=== PATIENT | female | born 1955 | race Hispanic/Latino ===

== ENCOUNTER 2021-05-28 14:46 | Emergency (ER) | payer OTHER ==
[~2021-05-28] VITALS: Ht 157.5 cm; Wt 108.9 kg
[2021-05-28] MEDS ORDERED: KETOROLAC 30MG VIAL (30MG/ML) IM ONE (16:30)
[2021-05-28] MEDS ORDERED: HYDROCODONE/ACETAMINOPHEN 5/325 MG TAB PO ONE (16:30)
[2021-05-28] MEDS ORDERED: IBUP-2070 PO (17:32)
[2021-05-28] MEDS ORDERED: CYCL5TAB PO (17:32)
[2021-05-28] MEDS ORDERED: ACET1TAB25 PO (17:32)
[2021-05-28 18:06] VITALS: BP 120/73
== END 2021-05-28 18:41 | disposition home or self-care (01) ==
LOC: EDH 14:46
DX: S82.832A Other fracture of upper and lower end of left fibula, initial encounter for closed fracture (principal); M25.562 Pain in left knee; I10 Essential (primary) hypertension; E11.9 Type 2 diabetes mellitus without complications; Z79.1 Long term (current) use of non-steroidal anti-inflammatories (NSAID); W01.0XXA Fall on same level from slipping, tripping and stumbling without subsequent striking against object, initial encounter; Y93.89 Activity, other specified; Y92.098 Other place in other non-institutional residence as the place of occurrence of the external cause; Y99.8 Other external cause status
CPT/HCPCS: 29515; 73560; 73610; 96372; 99284; J1885; 29125